=== PATIENT | male | born 1975 | race Caucasian/White ===

== ENCOUNTER 2017-01-31 19:00 | Emergency (ER) | payer OTHER, BC ==
[~2017-01-31] VITALS: Ht 185.4 cm; Wt 206.6 kg
[~2017-01-31 19:00] MED LIST: ADVAIR HFA120 INHALA IH; AMBIEN5 M1 PO; ASPIRIN E.C.81 M2 PO; ASPIRIN325 MG PO; ATARAX,VISTARIL50 MG PO; ATIVAN1 MG PO; ATIVAN2 MG PO; ATORVASTATIN CA10 MG PO; ATORVASTATIN CA40 MG PO; Ambien PO; Atarax,Vistaril PO; Ativan PO; BACLOFEN20 MG PO; BACTRIM,SEPT1 TABLET PO; CITALOPRAM HBR10 M1 PO; CLARITIN10 M3 PO; CYMBALTA20 MG PO; CYMBALTA60 MG PO; Decadron PO; ECPIRIN325 M1 PO; ENDOCET 5-3251 EACH PO; ESKALITH300 M1 PO; Flexeril PO; GABAPENTIN300 MG PO; HYDROXYZINE PAM25 MG PO; HYDROXYZINE PAM50 M1 PO; HYDROXYZINE PAM50 MG PO; INDERAL20 MG PO; KEFLEX500 MG PO; KEPPRA500 MG PO; LAMIC; LAMICTAL100 MG PO; LAMICTAL150 M1 PO; LAMICTAL200 MG PO; LAMICTAL25 MG PO; LATUDA80 MG PO; LEVETIRACETAM500 MG PO; LITHIUM CARBON300 MG NG; LO-DOSE ASPIRIN81 M1 PO; LORATADINE10 M2 PO; LORAZEPAM0.5 MG PO; LORAZEPAM2 MG PO; LOVENOX40 MG/0.4 SC; LYRICA150 MG PO; LYRICA75 MG PO; MIRALAX17 GM PO; NEURONTIN300 MG PO; OXYCONTIN10 MG PO; PERCOCET 5/31 TABLET PO; PROCTOZONE-HC30 GM PR; PROPRANOLOL HCL10 MG PO; PROPRANOLOL HCL20 MG PO; QUETIAPINE FUM100 MG PO; QUETIAPINE FUM400 MG PO; SENNA-TIME S T1 EACH PO; SENOKOT S,PE1 TABLET PO; SEROQUEL XR400 MG PO; SEROQUEL100 MG PO; SEROQUEL200 MG PO; SEROQUEL300 MG PO; SEROQUEL400 MG PO; TRAMADOL HCL50 MG PO; TRILIPIX135 MG PO; VICODIN,LORT1 TABLET PO; VISTARIL50 M1 NG; VITAMIN D250000 UNIT PO
[2017-01-31] MEDS ORDERED: PERCOCET 10/1 TABLET PO (20:57)
[2017-01-31 21:17] VITALS: BP 131/72
== END 2017-01-31 21:18 | disposition home or self-care (01) ==
LOC: EME 19:00 → EXP 19:00
DX: S73.101A Unspecified sprain of right hip, initial encounter (principal); X58.XXXA Exposure to other specified factors, initial encounter; G89.29 Other chronic pain; M54.9 Dorsalgia, unspecified; Z79.891 Long term (current) use of opiate analgesic; M16.11 Unilateral primary osteoarthritis, right hip; I10 Essential (primary) hypertension; Z98.1 Arthrodesis status; Z87.891 Personal history of nicotine dependence
CPT/HCPCS: 73502; 99281; 99283

== ENCOUNTER → 2017-04-20 | Outpatient (CLI) | payer MEDICARE, BC ==
[~2017-04-20] MED LIST changes: +PERCOCET 10/1 TABLET PO
== END | disposition home or self-care (01) ==
LOC: CDC 08:09
DX: T85.192A Other mechanical complication of implanted electronic neurostimulator of spinal cord electrode (lead), initial encounter (principal); R94.31 Abnormal electrocardiogram [ECG] [EKG]
CPT/HCPCS: 93000